=== PATIENT | male | born 1990 | race Asian ===

== ENCOUNTER 2018-03-08 10:02 | Emergency (ER) | payer OTHER ==
[~2018-03-08] VITALS: Ht 188 cm; Wt 62.6 kg
[2018-03-08] MEDS ORDERED: DIVALPROEX500 M1 (10:16)
[2018-03-08] MEDS ORDERED: ABILIFY20 MG (10:18)
[2018-03-08] MEDS ORDERED: BENZ1TAB43 PO (10:19)
[2018-03-08] MEDS ORDERED: SERT100T PO ×2 (10:19→10:21)
[2018-03-08] MEDS ORDERED: DIVA500T2 (10:20)
[2018-03-08 10:50] LABS: PLATELET COUNT 349 K/uL (142-355)
[2018-03-08 11:04] LABS: POTASSIUM 4.3 mmol/L (3.6-5.2)
[2018-03-11 07:00] VITALS: BP 108/68; TEMP 98
== END 2018-03-11 11:55 | disposition other institution (70) ==
LOC: ED 10:02
PROVIDERS: Family Medicine
DX: Z04.6 Encounter for general psychiatric examination, requested by authority (principal); F20.9 Schizophrenia, unspecified; F32.89 Other specified depressive episodes
CPT/HCPCS: 36415; 80053; 80307; 80320; 80329; 81000; 85027; 93005; 96372; 99285; J2060; J3486

== ENCOUNTER 2018-04-30 13:09 | Emergency (ER) | payer OTHER ==
[~2018-04-30] VITALS: Ht 188 cm; Wt 62.6 kg
[~2018-04-30 13:09] MED LIST: ABILIFY20 MG; BENZ1TAB43 PO; DIVA500T2; DIVALPROEX500 M1; SERT100T PO
[2018-05-07] MEDS ORDERED: LOPRESSOR100 MG PO (09:59)
[2018-05-07] MEDS ORDERED: DIOVAN HC1 PO (10:00)
[2018-05-07] MEDS ORDERED: AMLODIPINE BESYLATE PO (10:01)
[2018-05-07] MEDS ORDERED: LIPITOR40 MG PO (10:03)
[2018-05-07] MEDS ORDERED: DONE5TAB PO (10:05)
[2018-05-07] MEDS ORDERED: UNITH DIRECT75 MCG PO (10:07)
[2018-05-07] MEDS ORDERED: GRALISE300 MG (10:08)
[2018-05-07] MEDS ORDERED: GLIP10TA55 PO (10:08)
[2018-05-10 00:23] VITALS: BP 120/78; TEMP 98.4
== END 2018-05-10 07:45 | disposition other institution (70) ==
LOC: ED 13:09
DX: Z04.6 Encounter for general psychiatric examination, requested by authority (principal); F20.0 Paranoid schizophrenia; R45.850 Homicidal ideations
CPT/HCPCS: 36415; 96372; 99284; 99285; J1100; J1200; J1630; J2060; J3486